=== PATIENT | male | born 1965 | race Caucasian/White ===

== ENCOUNTER 2016-10-29 12:30 | Emergency (ER) | payer OTHER ==
[~2016-10-29] VITALS: Ht 188 cm; Wt 99.8 kg
[2016-10-29 12:33] VITALS: BP 144/80
--- NOTE | 2016-10-29 12:47 | ED UPPER/LOWER EXTREMITY COMPL ---
History of Present Illness General Chief Complaint: Lower Extremity Problems Stated Complaint: L LOWER LEG PAIN Source: patient Exam Limitations: no limitations Vital Signs & Intake/Output Vital Signs & Intake/Output Vital Signs Date Time Temp Pulse Resp B/P B/P Pulse O2 O2 Flow FiO2 Mean Ox Delivery Rate 10/29 1233 97.9 82 16 144/80 95 Room Air Allergies Coded Allergies: venom-honey bee (UNKNOWN 10/29/16) Reconcile Medications Lisinopril/Hydrochlorothiazide (Lisinopril-Hctz 10-12.5 MG Tab) 10 MG-12.5 MG TABLET 1 TAB PO DAILY HEART (Reported) Oxycodone HCl/Acetaminophen (Percocet 5-325 MG Tablet) 5 MG-325 MG TABLET 1 TAB PO BID PRN PAIN Triage Note: PT COMPLAINS OF SUDDEN ONSET L CALF PAIN FOR THE PAST 2 HOURS. DENIES INJURY Triage Nurses Notes Reviewed? yes Onset: Abrupt Duration: constant Timing: single episode today Severity: severe Severity Numbers: 7 HPI: Patient is a 51-year-old male with a past medical history of hypertension and hyperlipidemia who presents emergency room today saying that he was in his normal state health patient stood up and started ambulating and had acute onset of sharp stabbing severe left calf pain. Patient has tried multiple doses of ibuprofen with no relief of symptoms. Patient states that ambulation makes worse. Denies any fever chills chest pain hemoptysis shortness of breath distal leg swelling recent travel recent surgery history of DVT or PE. (REGGIE LING) Past History Travel History Traveled to [place] past 21 day No Medical History Any Pertinent Medical History? see below for history Neurological: NONE EENT: NONE Cardiovascular: hypertension, hyperlipidemia Respiratory: NONE Gastrointestinal: NONE Hepatic: NONE Renal: NONE Musculoskeletal: NONE Psychiatric: NONE Endocrine: NONE Blood Disorders: NONE Cancer(s): NONE AMPOULE SEALER/Reproductive: NONE Surgical History Surgical History: non-contributory Psychosocial History What is your primary language R[place] Tobacco Use: Never used ETOH Use: denies use Illicit Drug Use: denies illicit drug use Family History Hx Contributory? No (REGGIE LING) Review of Systems Review of Systems Constitutional: Reports: no symptoms. EENTM: Reports: no symptoms. Respiratory: Reports: no symptoms. Cardiovascular: Reports: no symptoms. Gastrointestinal/Abdominal: Reports: no symptoms. Genitourinary: Reports: no symptoms. Musculoskeletal: Reports: see HPI, muscle pain. Skin: Reports: no symptoms. Neurological/Psychological: Reports: no symptoms. Hematologic/Endocrine: Reports: no symptoms. Immunological: Reports: no symptoms. All Other Systems: Reviewed and Negative (REGGIE LING) Physical Exam Physical Exam General Appearance: no apparent distress, alert, comfortable Neurologic/Tendon: normal sensation, normal motor functions, normal tendon functions, responds to pain, no evidence tendon injury, no pulse deficit Comments: Well-developed well-nourished person in no acute distress HEENT: Normal EENT exam, Neck: Supple, no lymphadenopathy, normal range of motion without pain or tenderness Back: Nontender, no CVA tenderness. Cardiovascular: Regular rate and rhythms no murmurs rubs or gallops, normal JVP Respiratory: Chest nontender. No respiratory distress.breath sounds clear to auscultation bilaterally Abdomen: Soft, nontender nondistended, no appreciable organomegaly. Normal bowel sounds. No ascites Extremity: No edema,, normal and equal PEDAL pulses. Neuro: Alert oriented x3, motor sensory normal, . Skin: No appreciable rash on exposed skin, skin is warm and dry. Psych: Mood and affect is normal, memory and judgment is normal. Diagram Legs Front/Back 1) Normal inspection, moderate point tenderness upon palpation noted, dermatomes intact no Achilles tendon tenderness (REGGIE LING) Progress Differential Diagnosis: arterial insufficiency, cellulitis, CHF, compartment syndrome, contusion, dislocation, DVT, fracture, gout, septic arthritis, sprain, tendon injury Plan of Care: Orders Procedure Date/time Status Durable Medical Equipment 10/29 1447 Active Patient's left lower extremity was neurovascularly intact. my suspicion of DVT is very low however ultrasound will be obtained. My suspicion of gastrocnemius strain is very high. Ultrasound was unremarkable for concerns of DVT. There is no concerns of compartment syndrome. Patient was given crutches for as tolerated Upon discharge patient looks well no apparent distress and will comply with discharge instructions and had no questions. (REGGIE LING) Diagnostic Imaging: Viewed by Me: Ultrasound. Radiology Impression: no acute abnormality Comments: PATIENT: SANDEEP NGUYEN PRESENT AGE: 51 PATIENT ACCOUNT NO: [id number] : 63 LOCATION: [facility] ORDERING PHYSICIAN: REGGIE CANTOR SERVICE DATE: 10/29/16-1255 EXAM TYPE: US - US-UNILATERAL VENOUS DOPPLER EXAMINATION: US TRIPLEX LOWER EXTREMITY, LEFT CLINICAL INFORMATION: Left leg pain, tenderness. COMPARISON: None TECHNIQUE: Color-flow triplex imaging with spectral analysis and compression Doppler were performed on the lower extremity. FINDINGS: Respiratory variation, normal compression and augmented flow are noted throughout the left lower extremity. The visualized common femoral vein, superficial femoral vein, profunda femoral vein, popliteal vein and midcalf peroneal and posterior tibial venous segments show no evidence of deep venous thrombosis. There is no Madrid's cyst. IMPRESSION: Normal triplex scan without evidence of deep venous thrombosis involving the left lower extremity. DICTATED BY: RADHA DUPONT MD DATE/TIME DICTATED:10/29/161408 (REGGIE LING) Departure Departure Disposition: HOME OR SELF CARE Condition: Stable Clinical Impression Primary Impression: Pain of left calf Referrals: RANJIT CASTILLO,[employer] Additional Instructions: As discussed begin icing the area directly 20 minutes every 2 hours. Begin over -the-counter ibuprofen for pain and inflammation and begin the prescription of Percocet for breakthrough pain relief. If no better in 5 days follow-up with orthopedic Dr. Sidhu. If symptoms worsen return to emergency room. Begin using the crutches UNTIL YOU can walk without pain Departure Forms: Customer Survey General Discharge Information Prescriptions: Current Visit Scripts Oxycodone HCl/Acetaminophen (Percocet 5-325 MG Tablet) 1 TAB PO BID PRN PAIN #10 TAB (REGGIE LING) PA/COMMERCIAL ACCOUNT EXECUTIVE Co-Sign Statement Statement: ED Attending supervision documentation- [] I saw and evaluated the patient. I have also reviewed all the pertinent lab results and diagnostic results. I agree with the findings and the plan of care as documented in the PA's/COMMERCIAL ACCOUNT EXECUTIVE's documentation. [x] I have reviewed the ED Record and agree with the PA's/COMMERCIAL ACCOUNT EXECUTIVE's documentation. [] Additions or exceptions (if any) to the PAs/COMMERCIAL ACCOUNT EXECUTIVE's note and plan are summarized below: [] (JOHN ZAMORA DO)
[2016-10-29] MEDS ORDERED: LISINOPRIL-HCT1 EAC2 PO (12:57)
--- NOTE | 2016-10-29 14:13 | ULTRASOUND REPORT ---
EXAMINATION: US TRIPLEX LOWER EXTREMITY, LEFT CLINICAL INFORMATION: Left leg pain, tenderness. COMPARISON: None TECHNIQUE: Color-flow triplex imaging with spectral analysis and compression Doppler were performed on the lower extremity. FINDINGS: Respiratory variation, normal compression and augmented flow are noted throughout the left lower extremity. The visualized common femoral vein, superficial femoral vein, profunda femoral vein, popliteal vein and midcalf peroneal and posterior tibial venous segments show no evidence of deep venous thrombosis. There is no Madrid's cyst. IMPRESSION: Normal triplex scan without evidence of deep venous thrombosis involving the left lower extremity.
[2016-10-29] MEDS ORDERED: PERCOCET 5-3251 EACH PO (14:51)
== END 2016-10-29 15:06 ==
LOC: ERH 12:30
DX: M79.662 Pain in left lower leg (principal)
CPT/HCPCS: 96374